=== PATIENT | female | born 1990 | race Caucasian/White ===

== ENCOUNTER 2017-04-10 18:17 | Emergency (ER) | payer OTHER ==
[~2017-04-10] VITALS: Ht 157.5 cm; Wt 65.8 kg
[2017-04-10 18:35] VITALS: BP 125/71
[2017-04-10] MEDS ORDERED: PHEN100T82 PO (19:43)
[2017-04-10] MEDS ORDERED: SULF1TAB24 PO (19:43)
--- NOTE | 2017-04-10 19:45 | PHYS DOC ---
General Chief Complaint: ABDOMINAL PAIN Stated Complaint: CRAMPS, HAD BABY ON FRIDAY Time Seen by MD: 18:54 Source: patient Exam Limitations: no limitations Problems: History of Present Illness Initial Comments Patient is a 26-year-old female who comes to the ED with abdominal discomfort. Patient is day #4 normal spontaneous vaginal delivery no complications patient is not breast-feeding. This is her third child and she denies any risk factors. She was discharged home within 24 hours and recuperating well until earlier today she began to fill ill with lower abdominal and left flank discomfort. Symptoms are described as mild and nonspecific, she just knows something is abnormal due to prior history. No measured fevers no nausea vomiting or noticeable urinary or bowel symptoms. She denies any vaginal symptoms or discharge no bleeding. No pre- arrival treatment. She Department vital signs are stable she is afebrile. Timing/Duration: 24 hours Severity: mild Modifying Factors: improves with other Associated Symptoms: other Allergies: Coded Allergies: No Known Drug Allergies (Unverified , 04/10/17) Past Medical History Medical History: no pertinent history Surgical History: noncontributory Para: 3 : 3 LMP (Females 10-50): Social History Alcohol: none Drugs: none Review of Systems Constitutional: denies chills, denies diaphoresis, denies fever, malaise Respiratory: denies cough, denies shortness of breath Cardiovascular: denies chest pain, denies palpitations Gastrointestinal: abdominal pain, denies diarrhea, denies nausea, denies vomiting Genitourinary: denies dysuria, denies frequency, denies hematuria Musculoskeletal: back pain (left flank), denies joint swelling, denies neck pain Psychiatric/Neurological: denies headache, denies numbness, denies paresthesia Physical Exam General Appearance: WD/WN, no apparent distress Ear, Nose, Throat: hearing grossly normal, normal ENT inspection Neck: non-tender, supple Respiratory: normal breath sounds, no respiratory distress Cardiovascular: normal peripheral pulses, regular rate, rhythm Gastrointestinal: soft (nondistended, uterus appears involuted, suprapubic tenderness without rebound guarding or masses, bowel sounds are normal.) Back: no vertebral tenderness, CVA tenderness (L) Extremities: non-tender, normal inspection Neurologic/Psychiatric: rn trauma II-XII nml as tested, no motor/sensory deficits, alert, oriented x 3 Skin: normal color, warm/dry Orders, Labs, Meds Dipstick urine: Positive leukocyte esterase I discussed signs and symptoms to monitor as well as indications for urgent return to the department. I discussed [id number] prescription medications. I discussed urine culture results and PCP follow-up. Patient's questions were answered to her satisfaction she expressed agreement and understanding of the treatment plan. Departure Time of Disposition: 19:44 Disposition: 01 HOME, SELF-CARE Diagnosis: left pyelonephritis Condition: GOOD Patient Instructions: Pyelonephritis, Adult, [id number] Additional Instructions: Please review the patient education materials given by ED staff. Aggressive hydration with Gatorade or water. [id number] Tylenol and ibuprofen as needed. Prescription: Bactrim DS, Pyridium Follow-up with a doctor in 7-10 days for recheck and urine culture results. Return to ED with new or changing symptoms. SOUMYA DUFFY DO Apr 10, 2017 19:45
[2017-04-10] MEDS ORDERED: PHENAZOPYRIDINE 100 MG TABLET. PO ONE (20:15)
[2017-04-10] MEDS ORDERED: ONDANSETRON ODT 4 MG TAB.RAPDIS PO ONE (20:15)
[2017-04-10] MEDS ORDERED: SMZ/TMP 800/160MG TABLET. PO ONE (20:15)
[2017-04-10 21:15] LABS: BILIRUBIN,URINE NEG (NEG); CLARITY,URINE CLEAR; COLOR,URINE YELLOW; GLUCOSE,URINE NEG (NEG); NITRITE,URINE NEG (NEG); UROBILINOGEN,URINE 0.2 mg/dL (0.2 mg/dL)
[2017-04-10 21:22] LABS: BACTERIA,URINE 0 /HPF (0-FEW); SQUAMOUS EPITHELIAL CELL,UR MOD /LPF; WBC,URINE 20-40 /HPF (0-4)
== END 2017-04-10 20:11 | disposition home or self-care (01) ==
LOC: ER 18:17
DX: O86.21 Infection of kidney following delivery (principal)
CPT/HCPCS: 81001; 87086; 99284